=== PATIENT | female | born 1950 | race Caucasian/White ===

== ENCOUNTER → 2021-05-14 09:25 | Outpatient (CLI) | payer MEDICARE, SELFPAY ==
--- NOTE | 2021-05-14 09:30 | STE_ITS ---
Reason For Study: Chest Pain; HTN Stress Results Protocol: Jackson Protocol Maximum Predicted HR: 150 bpm Target HR: 128 bpm % Maximum Predicted HR: 101 % Heart Stage Duration Rate BP Comment (mm:ss) (bpm) Baseline 72 148/88No Chest Pain Jackson Protocol Stage I 3:00 100 164/86No Chest Pain Jackson Protocol Stage II 3:00 110 168/84No Chest Pain Jackson Protocol Stage III 2:00 151 180/78No Chest Pain No Chest Pain; Run Of Atrial Tachycardia Noted at Beginning Recovery 91 148/84of Recovery-Converted Within 40 Seconds Stress Duration: 8:00 mm:ss Maximum Stress HR: 151 bpm METS: 10 Baseline Echocardiogram Findings Stress Echo Wall motion Data Resting WM Intermediate WM Stress WM ECHO/Stress Test Echo w/o Contrast Interpretation Summary Exercise stress echo. 70-year-old lady with a history of family history of coronary artery disease. Stress protocol: Resting EKG demonstrates normal sinus rhythm with a rate of 73 bpm normal inter vals are noted resting blood pressure is 148/88 mmHg. The patient exercised according to regul ar Jackson protocol for a total duration of 8 minutes. The maximum heart rate attained was 190 bpm whic h was 126% of max infected heart rate. This was a run of supraventricular tachyarrhythmia. At res t there were no ST or T wave changes noted to suggest ischemia and at peak exercise upsloping ST mckeon ges were noted with did not meet the criteria for ischemia. Test was terminated due to the target h eart rate being achieved. The workload was 10.1 metabolic equivalents. The peak blood pressure was 200/72 mmHg which was a good blood pressure response to exercise. Stress echocardiogram. Resting and stress echocardiogram demonstrated preserved ejection fraction at r est of 55%. Mild left ventricle hypertrophy was noted. At peak exercise there was thickening of all w alls and reduction of low ventricular cavity size with peaking of ejection fraction of 65%. No wall m otion abnormalities were noted. No ischemia was noted. Conclusion: Normal stress echocardiogram with no evidence of ischemia at a moderate to high workload. Short run of supraventricular tachyarrhythmia noted with a rate of 184 bpm spon taneously converted. Ordering Physician: Marge Juarez Referring Physician: Colton Hernandez Performed By: Seda Miramontes RDCS, RVT
== END ==
PROVIDERS: PCP Student in an Organized Health Care Education/Training Program
DX: R07.9 Chest pain, unspecified (principal)
CPT/HCPCS: 93017; 93350

== ENCOUNTER → 2021-09-03 10:56 | Outpatient (CLI) | payer MEDICARE, SELFPAY ==
--- NOTE | 2021-09-03 10:58 | ECHOD_ITS ---
Reason For Study: Arrhythmia Procedure This was a 2D Doppler, Color Flow transthoracic echocardiogram. Exam performed in department. Left Ventricle Normal LV size. Left ventricular systolic function is normal. The estimated ejection fraction is 65 %. Normal diastology for age. No regional wall motion abnormalities noted. Right Ventricle Normal RV size. Normal systolic function. Atria Normal left atrium. Normal right atrium. Mitral Valve Normal mitral valve. Tricuspid Valve Normal tricuspid valve. Mild (1+) tricuspid valve insufficiency. Pulmonary artery systolic pressure is 25 mmHg. Aortic Valve Normal aortic valve. Trisinus/trileaflet aortic valve. Trivial aortic valve insufficiency. Pulmonic Valve Normal pulmonic valve. Great Vessels Normal aortic root. The pulmonary artery is normal size. Normal inferior vena cava. Pericardium/Pleural No pericardial effusion. MMode/2D Measurements & Calculations LVIDd: 3.8 cm IVSd: 1.1 cm Ao root diam: 3.1 cm LVIDs: 2.3 cm LVPWd: 1.2 cm RVDd: 2.2 cm FS: 39.5 % LAV(MOD-bp): 53.4 ml LVAd ap4: 25.3 cm2 LVAd ap2: 24.1 cm2 LAV(MOD-bp) Indexed: 29.2 ml/m2 LVLd ap4: 8.1 cm LVLd ap2: 7.7 cm LAV(MOD-sp2): 66.2 ml EDV(MOD-sp4): 64.2 ml EDV(MOD-sp2): 63.1 ml LAV(MOD-sp4): 38.7 ml EDV(sp4-el): 67.0 ml EDV(sp2-el): 64.2 ml LVAs ap4: 13.3 cm2 LVAs ap2: 12.9 cm2 LVLs ap4: 6.6 cm LVLs ap2: 7.1 cm ESV(MOD-sp4): 22.0 ml ESV(MOD-sp2): 20.5 ml ESV(sp4-el): 22.6 ml ESV(sp2-el): 20.0 ml EF(MOD-sp4): 65.7 % EF(MOD-sp2): 67.6 % EF(sp4-el): 66.2 % SV(MOD-sp4): 42.2 ml SV(MOD-sp2): 42.6 ml SV(sp4-el): 44.4 ml LA dimension(2D): 2.8 cm LA A4 area: 15.3 cm2 RA A4 area: 15.8 cm2 Doppler Measurements & Calculations MV E max apolinar: 71.0 cm/sec Lat Peak E' Apolinar: 8.0 cm/sec Med Peak E' Apolinar: 9.2 cm/sec MV A max apolinar: 50.7 cm/sec E/E' lat: 8.9 E/E' med: 7.7 MV E/A: 1.4 Ao V2 max: 133.1 cm/sec AI max apolinar: 504.2 cm/sec LV V1 max: 103.7 cm/sec Ao max P.1 mmHg AI max P.7 mmHg LV V1 max P.3 mmHg AI dec slope: 225.5 cm/sec2 AI P1/2t: 655.0 msec PA V2 max: 88.9 cm/sec TR max apolinar: 227.8 cm/sec TR max P.8 mmHg ECHO/Echo Complete Interpretation Summary Normal LV size. Left ventricular systolic function is normal. The estimated ejection fraction is 65 %. Normal diastology for age. Trivial aortic valve insufficiency. The global longitudinal strain is normal. The global longitudinal strain = -22. 3 % (normal). Ordering Physician: Colton Hernandez Referring Physician: Malcolm Almaguer Performed By: Gladis Zaldivar RDCS
== END ==
PROVIDERS: PCP Student in an Organized Health Care Education/Training Program; Referring Provider Internal Medicine Cardiovascular Disease; Visit Provider Internal Medicine Cardiovascular Disease
DX: I47.1 Supraventricular tachycardia (principal)
CPT/HCPCS: 93306